=== PATIENT | male | born 2000 | race African-American/Black ===

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

== ENCOUNTER 2019-11-10 22:21 | Emergency (ER) | payer OTHER, SELFPAY ==
[2019-11-10 22:23] VITALS: BP 122/67; PULSE 93; RESP 15; TEMP 36.8; O2SAT 98; BMI 28.4
[2019-11-10] MEDS: SUMAtriptan 6 MG/0.5 ML Vial SC (23:07)
--- NOTE | 2019-11-10 23:58 | EKG12_ITS ---
Test Reason : HEADACHE Blood Pressure : / mmHG Vent. Rate : 068 BPM Atrial Rate : 068 BPM P-R Int : 182 ms QRS Dur : 094 ms QT Int : 398 ms P-R-T Axes : 012 084 045 degrees QTc Int : 423 ms Normal sinus rhythm with sinus arrhythmia Normal ECG Confirmed by ERINN ALEXANDER ([id number]), editorial specialist ISIDORO VAIL ([id number]) on 11/17/2019 8:07:01 AM Referred By: R[place] Confirmed By:ERINN ALEXANDER
--- NOTE | 2019-11-11 00:09 | ED.RN ---
NO OLD EKGS IN MUSE
--- NOTE | 2019-11-11 00:56 | ED.VIS.HA ---
History of Present Illness Chief Complaint: Headache Narrative: Patient presenting for evaluation secondary to headache. Patient reports that over about the last day and a half he has been dealing with a migraine headache. Patient reports that he does have a history of getting migraine headaches, but typically they are able to be alleviated by [id number] remedies. Patient states that since yesterday he had a gradual onset of a frontal throbbing headache. Yesterday was associated with some nausea but no vomiting, and was associated with some photophobia but that has since improved. Patient denies any recent fevers, head injury, neck stiffness, or skin rashes. Patient reports that he took some ibuprofen this evening and it did not seem to alleviate his pain. Patient denies any auras, visual changes, numbness or weakness. Review of systems otherwise negative. Past Medical History - Allergies and Home Meds Allergies/Adverse Reactions: Allergies No Known Allergies Allergy (Verified 11/10/19 22:23) Primary Care Physician: aJg Ross MD [STAFF PHYSICIAN] - As Needed Care Physician,No Primary [Primary Care Provider] - Prior records reviewed: Yes Past Medical History: - - Prior history of headaches Smoking Status: Current every day smoker Review of Systems All systems negative except as indicated General: Denies: Chills, Fever, Sweats Eyes: Denies: Visual changes - bilaterally, Diplopia ENT: Denies: Rhinorrhea, Sore throat Cardiovascular: Denies: Chest pain, Palpitations Respiratory: Denies: Dyspnea, Cough, Dyspnea on exertion Gastrointestinal: Reports: Nausea Genitourinary: Denies: Dysuria, Hematuria, Frequency Musculoskeletal: Denies: Back pain, Extremity Pain Skin: Denies: Rash, Wounds Neurological: Reports: Headache Physical Exam Vital Signs/Narrative: Vital Signs Temp Pulse Resp BP Pulse Ox 11/10/19 22:23 98.2 F 93 15 122/67 H 98 Inital Vital Signs reviewed: Yes General: Well nourished, Well developed Head: NC, AT. Negative for: Tenderness, Temporary Artery Tenderness Eyes: Perrl, EOMI, - - Funduscopy shows sharp optic discs with no evidence of retinal hemorrhages bilaterally ENT: Moist mucous membranes, No rhinorrhea Neck: Supple, No Lymphadenopathy, No JVD, Nontender, No Meningismus Cardiovascular: Regular rate, Regular rhythm, No murmurs Respiratory: No distress, CTA bilaterally, Chest nontender Abdomen: Soft, Nontender, Nondistended, Normal bowel sounds Back: Nontender, Normal Inspection Extremities: Nontender, No edema Skin: Normal color, No rash Neuro: Alert, Oriented x3, Cranial nerves II-XII grossly intact, Normal Strength, Normal Sensation, Normal DTR, Normal Gait Psychological: Normal affect Diagnostic/Tx/Re-eval - EKG Initial EKG Interpretation: - - Normal sinus rhythm with isoelectric ST segments normal T waves normal OK and QTc intervals no evidence of acute ischemia or arrhythmia - Medical Decision Making Patient presented for evaluation secondary to headache. He has no red flag signs or symptoms, no indication for neuroimaging. Patient was given a dose of Imitrex. He had improvement of his headache, but told me that he was having a mild amount of chest discomfort, so an EKG was obtained which was found to be normal. Patient at this point likely had a migraine headache which is now resolved. I will give the patient neurology with which to follow-up should this continue to be an issue. Patient was discharged in improved condition. ED Disposition - Plan for ED Patient: Disposition: Home or Assisted Living Diagnosis: Migraine headache Instructions: ED, Migraine (Classical) Referrals: Care Physician,No Primary [Primary Care Provider] - Jag Ross MD [STAFF PHYSICIAN] - As Needed
[2019-11-11 01:11] VITALS: BP 116/58; PULSE 82; RESP 17; O2SAT 96
== END 2019-11-11 01:11 | disposition home or self-care (01) ==
PROVIDERS: Emergency Provider Emergency Medicine
DX: G43.909 Migraine, unspecified, not intractable, without status migrainosus (principal); F17.200 Nicotine dependence, unspecified, uncomplicated
CPT/HCPCS: 93005; 99282; J3030

== ENCOUNTER 2021-02-08 15:58 | Inpatient (IN) | payer OTHER, SELFPAY ==
[2021-02-08] VITALS (7 sets, daily range): BP systolic 107–115; BP diastolic 66–77; PULSE 92–112; RESP 18–25; TEMP 36.3–36.8; O2SAT 93–97; BMI 31.1
--- NOTE | 2021-02-08 16:47 | RAD_ITS ---
STUDY: X-RAY CHEST REASON FOR EXAM: Male, 21 years old. SOB TECHNIQUE: Single AP portable view of the chest. COMPARISON: None. FINDINGS: No pleural effusion. Moderate opacity in the left lower lobe. Normal size heart. Normal mediastinum and itzel. Normal visualized pulmonary arteries. Normal visualized aortic arch and descending thoracic aorta. Normal visualized thoracic spine. Normal visualized ribs, clavicles, and shoulders. There is no demonstrated abnormality of the visualized soft tissue structures of the upper abdomen. RAD/Chest 1 View IMPRESSION: Left lower lobe opacity suspicious for pneumonia. Electronically Signed: Jaed Gonsalez MD at 17:35 EDT Tel , Service support ,
--- NOTE | 2021-02-08 16:53 | EDS_ITS ---
HPI History of Present Illness Chief Complaint: Shortness of Breath Detail of Chief Complaint: Shortness of breath and COVID-19 infection Informant: patient Associated Symptoms cough and fever Narrative Narrative: Patient presents to the emergency department from urgent care. Patient was there for chest pain and increasing shortness of breath. Patient was diagnosed with COVID-19 about 8 days ago. Patient had symptoms 3 days prior to that. Patient about 5 days ago started having some chest discomfort in the left side of his chest especially with coughing. Patient feeling short of breath with activity. He complains of generalized weakness. He has had intermittent low-grade fevers. Patient complains of generalized weakness. Patient apparently with ambulation at urgent care had O2 sat dropped to 87%. PFSH PFS Medical History no medical history Home Medications NK 11/10/19 [History Last Taken Unknown] Allergy/AdvReac Type Severity Reaction Status Date / Time No Known Allergies Allergy Verified 02/08/21 16:13 Surgical History no surgical history Social History Smoking Status: Never smoker ROS [facility] ED Constitutional Constitutional ED: Reports systems reviewed and no addt'l complaints, except as documented; Denies body ache(s), change in weight or chills Eyes Eyes: Denies acute decrease in peripheral vision, change in vision, double vision or loss of vision ENT ENT ED: Reports none; Denies ear pain, lip swelling, loss taste/smell, neck pain, otalgia or sore throat Cardiovascular Cardiovascular: Reports none; Denies abdominal pain, chest pain with activity, leg edema, lightheadedness, palpitations, rapid heart rate or syncope Respiratory/Chest Respiratory/Chest: Reports none, cough and dyspnea; Denies change in mental status, dry cough, hemoptysis, shortness of breath at rest or shortness of breath with exertion Gastrointestinal Gastrointestinal: Reports none; Denies abdominal pain, change in stool abigail cter, diarrhea, hematemesis, hematochezia, melena, rectal bleeding or vomiting Genitourinary Genitourinary ED: Reports none; Denies abdominal discomfort, anuria, dysuria, genital pain or polyuria Musculoskeletal Musculoskeletal: Reports none and myalgias; Denies arthralgias, back pain, difficulty walking, extremity pain or muscle weakness Integumentary Reports none; Denies abscess or rash Neurologic Neurologic: Reports none and weakness; Denies abnormal gait, confusion, focal weakness, frequent falls, headache(s), loss of vision, numbness, paresthesias, radicular pain or vertigo Psychiatric Psychiatric: Reports systems reviewed and no addt'l complaints, except as documented and none; Denies behavioral changes, confusion, difficulty concentrating, hallucinations, suicidal ideation, tactile hallucinations or visual hallucinations Endocrine Endocrinology: Denies none, cold intolerance, excessive sweating, fatigue or heat intolerance Hematologic/Lymphatic Hematologic/Lymphatic: Reports none; Denies anemia, easy bleeding or easy bruising Allergic/Immunologic Allergic/Immunologic ED: Denies as per HPI, none, lip swelling, mouth swelling, throat swelling, tongue swelling or hives EXAM Physical Exam Const Vital Signs: 02/08/21 16:10 02/08/21 17:27 02/08/21 17:36 Temperature 97.8 F Temperature Source Temporal Pulse Rate 112 H Respiratory Rate 18 Respiratory Effort Short of Breath Respiratory Pattern Tachypnea Blood Pressure 107/77 Blood Pressure Mean 87 Pulse Ox 97 93 Oxygen Delivery Method Nasal Cannula Room Air Room Air Oxygen Flow Rate (L/min) 2 Positive well nourished and well developed General Appearance ED: well developed and NAD HEENT Reports TM's clear and moist mucous membranes normocephalic and atraumatic; Negative for trauma or tenderness Tympanic Membrane ED: Yes TM's clear Eyes PERRL and EOMs intact bilaterally General Eye ED: Negative for pale conjunctiva or scleral icterus Neck no lymphadenopathy, supple and no JVD General: Negative for tenderness Chest Wall inspection of chest normal and palpation of chest normal Chest: Negative for tenderness Resp normal respiratory effort and clear to auscultation bilaterally Effort and Inspection: Negative for respiratory distress or pain with movement Auscultation: Negative for rhonchi, wheezes or diminished lung sounds Cardio regular rate, regular rhythm, S1 normal heart sound, S2 normal heart sound and no murmurs Peripheral Pulses: pulses 2+ throughout GI normal to inspection, nondistended, normoactive bowel sounds, soft to palpation, non-tender, non-distended and no masses Back/Spine no CVA tenderness and no thoracic nor lumbar tenderness Extremity normal to inspection General Extremety ED: Negative for edema General Extremity: Negative for edema Neuro oriented x3, CN's II-XII intact bilaterally, no sensory deficits noted and gait normal Sensorium / Orientation: awake, alert, oriented to person, oriented to place and oriented to time Motor Exam: strength 5/5 throughout and strength abnormal Psych mental status grossly normal Skin no rashes or lesions noted and no wounds MDM MDM MDM Narrative Medical decision making narrative: Patient placed on 2 L nasal cannula O2. Patient had an elevated D-dimer therefore CTA was obtained which showed extensive bilateral PEs with a left lower lobe consolidation. Patient had blood cultures ordered and started Levaquin. Patient was started on Lovenox subcu. Case discussed with hospitalist will evaluate patient for admission Lab Data Attestation: I reviewed the patient's lab results. Labs: Laboratory Results - last 24 hr 02/08/21 02/08/21 02/08/21 16:45 16:45 16:45 WBC 11.3 H RBC 5.40 Hgb 16.2 Hct 48.9 MCV 90.6 MCH 30.0 MCHC 33.1 RDW Std Deviation 39.6 RDW Coeff of John 11.9 Plt Count 455 H MPV 8.7 Immature Gran % (Auto) 1.500 H Neut % (Auto) 75.9 H Lymph % (Auto) 10.7 L [place] % (Auto) 11.3 H Eos % (Auto) 0.2 Baso % (Auto) 0.4 Absolute Neuts (auto) 8.6 H Absolute Lymphs (auto) 1.21 Nucleated RBC % 0 D-Dimer Quant (PE/DVT) 13.47 H* Sodium 137 Potassium 3.6 Chloride 102 Carbon Dioxide 30.0 Anion Gap 5 BUN 8 Creatinine 1.05 Estim Creat Clear Calc 121.12 Est GFR (MDRD) Af Amer 114 Est GFR (MDRD) Non-Af 94 BUN/Creatinine Ratio 7.6 L Glucose 111 H Calcium 9.1 Radiography Chest X-Ray - ED: 1 View Diagnostic Testing: Radiology Impression Chest X-Ray 02/08/21 16:47 IMPRESSION: Left lower lobe opacity suspicious for pneumonia. Electronically Signed: Jade Gonsalez MD at 17:35 EDT Tel , Service support , Chest CTA 02/08/21 17:42 IMPRESSION: 1. Extensive bilateral pulmonary emboli. 2. Left lower lobe consolidation. Pneumonia is favored over pulmonary infarct. 3. Right lung opacities suspicious for pneumonia, including possible Covid-19 pneumonia. Electronically Signed: Jade Gonsalez MD at 18:25 EDT Tel , Service support , ADDENDUM: 02/08/21 1840 IMPRESSION: 1. Extensive bilateral pulmonary emboli. 2. Left lower lobe consolidation. Pneumonia is favored over pulmonary infarct. 3. Right lung opacities suspicious for pneumonia, including possible Covid-19 pneumonia. N.B. : The above Results were Read Back by Jade Gonsalez MD to Dr Jovany MD, and understanding confirmed on 02/08/2021 18:32:04 (ET). Electronically Signed: Jade Gonsalez MD at 18:25 EDT Tel , Service support , 1 view chest x-ray obtained interpreted by myself as left lower lobe infiltrate. Radiology in agreement. Discharge Plan Triage Chief Complaint: Shortness of Breath ED Provider: Noah Manzo Dx/Rx/DC Orders Clinical Impression: COVID-19, Pneumonia, Pulmonary emboli, Hypoxemia Prescriptions: No Action NK RF: 0 Primary Care Provider: Care Physician,No Primary Referrals: Care Physician,No Primary [Primary Care Provider] - Disposition Disposition: Acute Care [facility]
[2021-02-08 17:08] LABS: Absolute Lymphocyte Count 1.21 X10^3/uL (0.83-4.51); Absolute Neutrophil Count 8.6 X10^3/uL (2.0-7.7); Basophil# 0.04 X10^3/uL; Basophil% 0.4 % (0-1); Eosinophil# 0.02 X10^3/uL; Eosinophils% 0.2 % (0-5); Hematocrit 48.9 % (40-54); Hemoglobin 16.2 g/dL (13.0-16.5); Lymphocyte # 1.21 X10^3/ul (0.83-4.51); Lymphocyte % 10.7 % (19-41); Mean Corp Hgb Conc 33.1 g/dL (32-36); Mean Corpuscular Volume 90.6 fL (80-94); Mean Platelet Vol. 8.7 fl (6.2-12.0); Monocyte# 1.27 X10^3/uL; Monocyte% 11.3 % (0-10); NRBC Flagged by Analyzer 0 % (0-5); Neutrophil # 8.55 X10^3/uL (2.7-7.7); Neutrophil % 75.9 % (47-70); Platelet Count 455 K/mm3 (150-450); RBC Distribution Width CV 11.9 % (11.6-14.6); RBC Distribution Width SD 39.6 fl (35.1-43.9); White Blood Count 11.3 K/mm3 (4.4-11.0)
[2021-02-08 17:26] LABS: D-Dimer Quantitative (DVT/PE) 13.47 FEU/ug/m (0.27-0.49)
[2021-02-08 17:29] LABS: Anion Gap 5 (5-15); BUN 8 mg/dL (7-18); BUN/Creat Ratio 7.6 RATIO (10-20); Calcium,Total 9.1 mg/dL (8.5-10.1); Chloride 102 mmol/L (98-107); Creatinine, Serum 1.05 mg/dL (0.70-1.30); EST Glomerular Filtration Rate 94 mL/min (>60); Est Glom Filt Rate - Afr Amer 114 mL/min (>60); Estimated Creatinine Clearance 121.12 ml/min; Glucose 111 mg/dL (74-106); Potassium 3.6 mmol/L (3.5-5.1); Sodium Level 137 mmol/L (136-145)
--- NOTE | 2021-02-08 17:42 | CT_ITS ---
We are attempting to reach an attending provider to discuss findings. An addendum with communication details will be sent when the communication is complete. STUDY: CTA CHEST REASON FOR EXAM: Male, 21 years old. chest pain, elevated d-dimer RADIATION DOSAGE (If Supplied By Facility): CTDIvol = ( 11.06 ) mGy, DLP = ( 410.74 ) mGycm TECHNIQUE: The examination was performed with the intravenous administration of IV 100mL Isovue-370. Post-processing of the angiographic images was performed, with multiplanar reformation and 3D reconstruction. Individualized dose optimization techniques were used for this CT. COMPARISON: None. FINDINGS: Heart size and pericardium are unremarkable. The aorta is normal in caliber. No aneurysm or dissection. There is no mediastinal mass or adenopathy. There is no hilar or axillary adenopathy. Extensive pulmonary embolus with emboli demonstrated and all lobar arteries. Segmental and subsegmental emboli are also present. Trace right pleural effusion. If lower lobe consolidation consistent with pneumonia. Pulmonary infarct is not excluded. Mild hazy opacity in the right lung, suspicious for pneumonic infiltrate. Visualized abdomen is unremarkable. There is no osseous abnormality. CT/CTA Chest W/WO Contrast IMPRESSION: 1. Extensive bilateral pulmonary emboli. 2. Left lower lobe consolidation. Pneumonia is favored over pulmonary infarct. 3. Right lung opacities suspicious for pneumonia, including possible Covid-19 pneumonia. Electronically Signed: Jade Gonsalez MD at 18:25 EDT Tel , Service support ,
[2021-02-08] MEDS: levoFLOXacin IV 750 MG/150 ML BAG 100 MG IV (18:57)
[2021-02-08] MEDS: Enoxaparin 100 MG/ML Syringe 105 MG SC (18:57)
--- NOTE | 2021-02-08 18:57 | NURSING ---
118 GEOFFREY COVID, PNEUMONIA, HYPOXIA, PE
--- NOTE | 2021-02-08 18:59 | PCM.HP.STD ---
HPI - General General Date of Admission: 02/08/21 HPI Narrative JORGE LUIS VILLANUEVA, is a 21 M who presents [facility] Medical History no medical history Home Medications NK 11/10/19 [History Last Taken Unknown] Allergy/AdvReac Type Severity Reaction Status Date / Time No Known Allergies Allergy Verified 02/08/21 16:13 Surgical History no surgical history Social History Smoking Status: Never smoker Vital Signs Vital Signs Vital Signs: 02/08/21 16:10 02/08/21 17:27 02/08/21 17:36 Temperature 97.8 F Temperature Source Temporal Pulse Rate 112 H Respiratory Rate 18 Respiratory Effort Short of Breath Respiratory Pattern Tachypnea Blood Pressure 107/77 Blood Pressure Mean 87 Pulse Ox 97 93 Oxygen Delivery Method Nasal Cannula Room Air Room Air Oxygen Flow Rate (L/min) 2 Weight Weight: 230 lb Body Mass Index (BMI) 31.1 Results Lab / Micro Data Result Diagrams: 02/08/21 16:45 02/08/21 16:45 Labs: Laboratory Results - last 24 hr 02/08/21 16:45: WBC 11.3 H, RBC 5.40, Hgb 16.2, Hct 48.9, MCV 90.6, MCH 30.0, MCHC 33.1, RDW Std Deviation 39.6, RDW Coeff of John 11.9, Plt Count 455 H, MPV 8.7, Immature Gran % (Auto) 1.500 H, Neut % (Auto) 75.9 H, Lymph % (Auto) 10.7 L, [place] % (Auto) 11.3 H, Eos % (Auto) 0.2, Baso % (Auto) 0.4, Absolute Neuts (auto) 8.6 H, Absolute Lymphs (auto) 1.21, Nucleated RBC % 0 02/08/21 16:45: Sodium 137, Potassium 3.6, Chloride 102, Carbon Dioxide 30.0, Anion Gap 5, BUN 8, Creatinine 1.05, Estim Creat Clear Calc 121.12, Est GFR (MDRD) Af Amer 114, Est GFR (MDRD) Non-Af 94, BUN/Creatinine Ratio 7.6 L, Glucose 111 H, Calcium 9.1 02/08/21 16:45: D-Dimer Quant (PE/DVT) 13.47 H* Radiology Impression Chest X-Ray 02/08/21 16:47 IMPRESSION: Left lower lobe opacity suspicious for pneumonia. Electronically Signed: Jade Gonsalez MD at 17:35 EDT Tel , Service support , Chest CTA 02/08/21 17:42 IMPRESSION: 1. Extensive bilateral pulmonary emboli. 2. Left lower lobe consolidation. Pneumonia is favored over pulmonary infarct. 3. Right lung opacities suspicious for pneumonia, including possible Covid-19 pneumonia. Electronically Signed: Jade Gonsalez MD at 18:25 EDT Tel , Service support , ADDENDUM: 02/08/21 1840 IMPRESSION: 1. Extensive bilateral pulmonary emboli. 2. Left lower lobe consolidation. Pneumonia is favored over pulmonary infarct. 3. Right lung opacities suspicious for pneumonia, including possible Covid-19 pneumonia. N.B. : The above Results were Read Back by Jade Gonsalez MD to Dr Jovany MD, and understanding confirmed on 02/08/2021 18:32:04 (ET). Electronically Signed: Jade Gonsalez MD at 18:25 EDT Tel , Service support ,
--- NOTE | 2021-02-08 19:18 | PCM.HP.STD ---
HPI - General General Date of Admission: 02/08/21 Date of Service: 02/08/21 Chief Complaint: Hypoxia, COVID positive, pleuritic discomfort. HPI Narrative The patient is a 21 y/o M w/ no marked PMHx who presents to the [facility] ED on 02/08/21 with history of onset of Covid symptoms over the last 10 days with mild headache, decreased sense of taste and smell, mild nausea, dry heaving, mild abdominal cramping and loose stools with progressively worsening cough and dyspnea as well as body aches with no specific fever, chills associated however continued to worsen prompting evaluation initially at [facility] urgent care with positive Covid status however given continued difficulty with even ambulation secondary to worsening dyspnea patient prompted to be evaluated in the ED. Patient does report some pleuritic discomfort in addition. Patient did not receive the Covid vaccination. Work-up in the ED included T 97 8, heart rate initially 112, BP 107/77, respiratory rate 18, 93% on room air with improvement to 96 on 2 L nasal cannula, CBC with WC 11.3, hemoglobin 16.2, platelet 455 with left shift, D-dimer 13.47, BMP with glucose 111 otherwise not marked appearing, chest x-ray with left lower lobe opacity suspicious for pneumonia, follow-up CTPA with extensive bilateral pulmonary emboli, left lower lobe consolidation with pneumonia favored over pulmonary infarct, right lung opacity also suspicious for pneumonia suspicious for COVID-19 pneumonia. In the ED patient administered therapeutic lovenox and Levaquin. [facility] Medical History (Updated 02/08/21 @ 19:[address] Nevaeh Mak MD) No significant past medical history Medical History no medical history Home Medications NK 11/10/19 [History Last Taken Unknown] Allergy/AdvReac Type Severity Reaction Status Date / Time No Known Allergies Allergy Verified 02/08/21 16:13 Family History (Updated 02/08/21 @ 19:[address] Nevaeh Mak MD) Father Diabetes Mother Hypertension Surgical History (Updated 02/08/21 @ 19:[address] Nevaeh Mak MD) No significant past surgical history Surgical History no surgical history Social History (Updated 02/08/21 @ 19:[address] Nevaeh Mak MD) household members: none Smoking Status: Never smoker alcohol intake: current alcohol intake frequency: a few times a month substance use type: does not use ROS ROS Narrative Admission Review of Systems: CONSTITUTIONAL: No weight loss, fever, chills, + weakness or fatigue. HEENT: Eyes: No visual loss, blurred vision, double vision or yellow sclerae. Ears, Nose, Throat: No hearing loss, sneezing, congestion, runny nose or sore throat. SKIN: No rash or itching, lesions, wounds. CARDIOVASCULAR: No chest pain, chest pressure or chest discomfort, palpitations, edema, orthopnea, syncopal events. RESPIRATORY: + shortness of breath, cough, No marked sputum, wheezing, hemoptysis. GASTROINTESTINAL: + anorexia, nausea, vomiting, diarrhea, abdominal pain, No melena, BRBPR. GENITOURINARY: No dysuria, frequency, urgency or retention. NEUROLOGICAL: No headache, dizziness, syncope, paralysis, ataxia, numbness or tingling in the extremities, focal weakness, change in bowel or bladder control, seizure. MUSCULOSKELETAL: + muscle, back pain, joint pain or stiffness. HEMATOLOGIC: No anemia, bleeding or bruising. LYMPHATICS: No enlarged nodes. No history of splenectomy. PSYCHIATRIC: No history of depression or anxiety. ENDOCRINOLOGIC: No reports of sweating, cold or heat intolerance. No polyuria or polydipsia. ALLERGIES: No history of asthma, hives, eczema or rhinitis. Vital Signs Vital Signs Vital Signs: 02/08/21 16:10 02/08/21 17:27 02/08/21 17:36 Temperature 97.8 F Temperature Source Temporal Pulse Rate 112 H Respiratory Rate 18 Respiratory Effort Short of Breath Respiratory Pattern Tachypnea Blood Pressure 107/77 Blood Pressure Mean 87 Pulse Ox 97 93 Oxygen Delivery Method Nasal Cannula Room Air Room Air Oxygen Flow Rate (L/min) 2 02/08/21 19:05 Temperature 98.3 F Temperature Source Oral Pulse Rate 92 Respiratory Rate 25 H Respiratory Effort Respiratory Pattern Blood Pressure 115/73 Blood Pressure Mean 87 Pulse Ox 96 Oxygen Delivery Method Nasal Cannula Oxygen Flow Rate (L/min) 2 Weight Weight: 230 lb Body Mass Index (BMI) 31.1 Physical Exam Narrative Physical Examination: General: Awake, alert, oriented x 3 and cooperative, seated upright in the ED bed in no apparent distress, fatigued appearance. Skin: Normal color, normal turgor, no icterus, no cyanosis. HEENT: AT/NC, EOMI, PERRLA, mildly dry MM, no carotid bruits or JVD noted. Lungs: Diminished, greater bases, mildly decreased effort likely secondary to pleuritic discomfort elicited, mild increased respiratory rate, no rales, ronchi or wheezing. Heart: Tachycardic with regular rhythm; no gallop, rub audible. Abdomen: Soft, NTTP, no obvious distention, mildly hyperactive BS, no HSM. Extremities: No cyanosis, clubbing, or edema. Neurological: Patient awake, alert, oriented as noted, cognitive function intact; pupils equally reactive to light and accommodation, cranial nerves II-XII grossly normal, moving all 4 extremities, no focal deficits, strength moderately globally 3 secondary to acute presentation complaints. Psychiatric: Affect appears fatigued, no acute evidence of depressive or anxiety feelings. Results Lab / Micro Data Result Diagrams: 02/08/21 16:45 02/08/21 16:45 Labs: Laboratory Results - last 24 hr 02/08/21 16:45: WBC 11.3 H, RBC 5.40, Hgb 16.2, Hct 48.9, MCV 90.6, MCH 30.0, MCHC 33.1, RDW Std Deviation 39.6, RDW Coeff of John 11.9, Plt Count 455 H, MPV 8.7, Immature Gran % (Auto) 1.500 H, Neut % (Auto) 75.9 H, Lymph % (Auto) 10.7 L, [place] % (Auto) 11.3 H, Eos % (Auto) 0.2, Baso % (Auto) 0.4, Absolute Neuts (auto) 8.6 H, Absolute Lymphs (auto) 1.21, Nucleated RBC % 0 02/08/21 16:45: Sodium 137, Potassium 3.6, Chloride 102, Carbon Dioxide 30.0, Anion Gap 5, BUN 8, Creatinine 1.05, Estim Creat Clear Calc 121.12, Est GFR (MDRD) Af Amer 114, Est GFR (MDRD) Non-Af 94, BUN/Creatinine Ratio 7.6 L, Glucose 111 H, Calcium 9.1 02/08/21 16:45: D-Dimer Quant (PE/DVT) 13.47 H* Radiology Impression Chest X-Ray 02/08/21 16:47 IMPRESSION: Left lower lobe opacity suspicious for pneumonia. Electronically Signed: Jade Gonsalez MD at 17:35 EDT Tel , Service support , Chest CTA 02/08/21 17:42 IMPRESSION: 1. Extensive bilateral pulmonary emboli. 2. Left lower lobe consolidation. Pneumonia is favored over pulmonary infarct. 3. Right lung opacities suspicious for pneumonia, including possible Covid-19 pneumonia. Electronically Signed: Jade Gonsalez MD at 18:25 EDT Tel , Service support , ADDENDUM: 02/08/21 1840 IMPRESSION: 1. Extensive bilateral pulmonary emboli. 2. Left lower lobe consolidation. Pneumonia is favored over pulmonary infarct. 3. Right lung opacities suspicious for pneumonia, including possible Covid-19 pneumonia. N.B. : The above Results were Read Back by Jade Gonsalez MD to Dr Jovany MD, and understanding confirmed on 02/08/2021 18:32:04 (ET). Electronically Signed: Jade Gonsalez MD at 18:25 EDT Tel , Service support , Assessment & Plan Assessment/Plan (1) COVID-19: (2) Hypoxemia: (3) Pulmonary emboli: QUALIFIERS: Pulmonary embolism type: unspecified Chronicity: acute Acute cor pulmonale presence: unspecified Qualified Code(s): I26.99 - Other pulmonary embolism without acute cor pulmonale PLAN: The patient is a 21 y/o M w/ no marked PMHx who presents to the [facility] ED on 02/08/21 with history of onset of Covid symptoms over the last 10 days with mild headache, decreased sense of taste and smell, mild nausea, dry heaving, mild abdominal cramping and loose stools with progressively worsening cough and dyspnea as well as body aches with no specific fever, chills associated however continued to worsen prompting evaluation. 1. Acute Hypoxia secondary to Acute Bilateral Pneumonia secondary to Acute Viral Syndrome, COVID-19, Questionable Superimposed bacterial PNA and Acute Extensive BL Pulmonary Emboli: Will admit to the PCU, maintain on COVID precautions, will maintain on oxygen with wean as tolerated to room air, PRN albuterol, HOB, IS parameters w/ pending sputum cultures, respiratory viral panel and urine antigens, will obtain procalcitonin, CRP, CPK, Ferritin, LDH, trop, BNP, hepatic profile, will continue supportive care including q 2 hour turning including prone given no prone bed availability and judicious hydration, closely monitor for worsening status for ARDS and multiorgan failure, will initiate and continue IV decadron x 10 doses, will also initiate IV remdesivir but defer to discretion of Infectious disease, will continue therapeutic lovenox with pending CM consultation for oral options/NOAC affordability. Patient administered Levaquin in the ED given appearance on CXR and CTPA, will continue pending additional work-up as noted for possible superimposed bacterial PNA, d/c if work-up more consistent with primarily COVID viral PNA. Discussed vaccination following clinical improvement as well as completion of quarantine. 2. DVT prophylaxis: SCDs, continue therapeutic Lovenox. Charges/Coding Visit Charges Inpatient E&M: 76183 Init Hosp L2
[2021-02-08 20:00] LABS: BNP,B-Type NATRIURETIC PEPTIDE 6.8 pg/mL (0-100)
[2021-02-08 20:01] LABS: AST(SGOT) 27 U/L (15-37); Alanine Aminotransfer ALT/SGPT 32 U/L (16-61); Albumin, Serum 3.3 g/dL (3.2-5.0); Alkaline Phosphatase 61 U/L (45-117); Bilirubin, Direct 0.38 mg/dL (0.00-0.30); Ferritin 659 ng/mL (26-388); Globulin 5.6 g/dL (2.2-4.2); LDH 359 U/L (87-241); Protein, Total 8.9 g/dL (6.4-8.2)
[2021-02-08 20:04] LABS: Procalcitonin 0.06 ng/mL (0.00-0.09)
--- NOTE | 2021-02-08 20:07 | PCS.PANDOC ---
PANDEMIC DOCUMENTATION INITIATED: Date: 01/02/2021 Time: 190
[2021-02-08] MEDS: Famotidine 20 MG Tablet PO (21:07)
[2021-02-08 22:39] LABS: Troponin-I HS 4 pg/mL (3.0-78.0)
[2021-02-09] VITALS (13 sets, daily range): BP systolic 111–147; BP diastolic 64–84; PULSE 85–101; RESP 16–18; TEMP 36.3–37.4; O2SAT 91–98
[2021-02-09 00:42] LABS: Troponin-I HS 4 pg/mL (3.0-78.0)
[2021-02-09 05:20] LABS: Absolute Lymphocyte Count 1.96 X10^3/uL (0.83-4.51); Absolute Neutrophil Count 6.3 X10^3/uL (2.0-7.7); Basophil# 0.03 X10^3/uL; Basophil% 0.3 % (0-1); Eosinophil# 0.05 X10^3/uL; Eosinophils% 0.5 % (0-5); Hematocrit 43.6 % (40-54); Hemoglobin 14.6 g/dL (13.0-16.5); Lymphocyte # 1.96 X10^3/ul (0.83-4.51); Lymphocyte % 20.2 % (19-41); Mean Corp Hgb Conc 33.5 g/dL (32-36); Mean Corpuscular Volume 89.5 fL (80-94); Mean Platelet Vol. 8.7 fl (6.2-12.0); Monocyte# 1.29 X10^3/uL; Monocyte% 13.3 % (0-10); NRBC Flagged by Analyzer 0 % (0-5); Neutrophil # 6.25 X10^3/uL (2.7-7.7); Neutrophil % 64.3 % (47-70); Platelet Count 465 K/mm3 (150-450); RBC Distribution Width CV 11.9 % (11.6-14.6); RBC Distribution Width SD 38.8 fl (35.1-43.9); Red Blood Count 4.87 M/mm3 (4.6-6.2); White Blood Count 9.7 K/mm3 (4.4-11.0)
[2021-02-09 06:18] LABS: ALB/GLOB Ratio 0.5 RATIO (0.9-2.4); AST(SGOT) 22 U/L (15-37); Alanine Aminotransfer ALT/SGPT 28 U/L (16-61); Albumin, Serum 2.5 g/dL (3.2-5.0); Alkaline Phosphatase 57 U/L (45-117); Anion Gap 7 (5-15); BUN 7 mg/dL (7-18); BUN/Creat Ratio 9.1 RATIO (10-20); Calcium,Total 8.3 mg/dL (8.5-10.1); Chloride 104 mmol/L (98-107); Creatinine, Serum 0.77 mg/dL (0.70-1.30); EST Glomerular Filtration Rate 135 mL/min (>60); Est Glom Filt Rate - Afr Amer 163 mL/min (>60); Estimated Creatinine Clearance 165.17 ml/min; Globulin 4.9 g/dL (2.2-4.2); Glucose 115 mg/dL (74-106); Potassium 3.4 mmol/L (3.5-5.1); Protein, Total 7.4 g/dL (6.4-8.2); Sodium Level 136 mmol/L (136-145); Troponin-I HS 4 pg/mL (3.0-78.0)
--- NOTE | 2021-02-09 08:13 | PCM.PN.HOSP ---
Subjective Subjective Patient is a 21-year-old unvaccinated male diagnosed with COVID-19 8 days prior to his admission who was sent from his primary care physician's office with hypoxia. Patient was apparently found to be saturating 87% on room air with exertion. Objective Data Objective Data Vital Signs: Vital Signs Temp Pulse Resp BP Pulse Ox 98.5 F 93 18 113/67 98 02/09/21 05:31 02/09/21 07:10 02/09/21 05:31 02/09/21 05:31 02/09/21 05:31 Oxygen Flow Rate (L/min) 2 Oxygen Delivery Method Nasal Cannula Weight: 100.7 kg Body Mass Index (BMI) 30.0 Intake & Output: Intake and Output for Last 24 Hours 02/07/21 02/08/21 02/09/21 23:59 23:59 23:59 Intake Total 400 / 400 Balance 400 / 400 Lab / Micro Data Result Diagrams: 02/09/21 04:48 02/09/21 04:48 Labs: Laboratory Results - last 24 hr 02/08/21 16:45: WBC 11.3 H, RBC 5.40, Hgb 16.2, Hct 48.9, MCV 90.6, MCH 30.0, MCHC 33.1, RDW Std Deviation 39.6, RDW Coeff of John 11.9, Plt Count 455 H, MPV 8.7, Immature Gran % (Auto) 1.500 H, Neut % (Auto) 75.9 H, Lymph % (Auto) 10.7 L, [place] % (Auto) 11.3 H, Eos % (Auto) 0.2, Baso % (Auto) 0.4, Absolute Neuts (auto) 8.6 H, Absolute Lymphs (auto) 1.21, Nucleated RBC % 0 02/08/21 16:45: Sodium 137, Potassium 3.6, Chloride 102, Carbon Dioxide 30.0, Anion Gap 5, BUN 8, Creatinine 1.05, Estim Creat Clear Calc 121.12, Est GFR (MDRD) Af Amer 114, Est GFR (MDRD) Non-Af 94, BUN/Creatinine Ratio 7.6 L, Glucose 111 H, Calcium 9.1 02/08/21 16:45: D-Dimer Quant (PE/DVT) 13.47 H* 02/08/21 16:45: Ferritin 659 H, Total Bilirubin 1.10 H, Direct Bilirubin 0.38 H, AST 27, ALT 32, Alkaline Phosphatase 61, Lactate Dehydrogenase 359 H, C-React Prot Ext Range 114.00 H, Total Protein 8.9 H, Albumin 3.3, Globulin 5.6 H 02/08/21 16:45: B-Natriuretic Peptide 6.8 02/08/21 16:45: Procalcitonin 0.06 02/08/21 22:12: Troponin I High Sens 4 02/09/21 00:00: Troponin I High Sens 4 02/09/21 04:48: WBC 9.7, RBC 4.87, Hgb 14.6, Hct 43.6, MCV 89.5, MCH 30.0, MCHC 33.5, RDW Std Deviation 38.8, RDW Coeff of John 11.9, Plt Count 465 H, MPV 8.7, Immature Gran % (Auto) 1.400 H, Neut % (Auto) 64.3, Lymph % (Auto) 20.2, [place] % (Auto) 13.3 H, Eos % (Auto) 0.5, Baso % (Auto) 0.3, Absolute Neuts (auto) 6.3, Absolute Lymphs (auto) 1.96, Nucleated RBC % 0 02/09/21 04:48: Sodium 136, Potassium 3.4 L, Chloride 104, Carbon Dioxide 25.0, Anion Gap 7, BUN 7, Creatinine 0.77, Estim Creat Clear Calc 165.17, Est GFR (MDRD) Af Amer 163, Est GFR (MDRD) Non-Af 135, BUN/Creatinine Ratio 9.1 L, Glucose 115 H, Calcium 8.3 L, Total Bilirubin 0.60, AST 22, ALT 28, Alkaline Phosphatase 57, Troponin I High Sens 4, Total Protein 7.4, Albumin 2.5 L, Globulin 4.9 H, Albumin/Globulin Ratio 0.5 L Micro: Microbiology 02/08/21 20:11 Mucosa - Nasopharyngeal Respiratory Panel (PCR) - Final 02/08/21 21:17 Urine, Clean Catch Legionella Antigen - Final 02/08/21 21:17 Urine, Clean Catch Streptococcus pneumoniae Antigen (M - Final Radiography Diagnostic Testing: Radiology Impression Chest X-Ray 02/08/21 16:47 IMPRESSION: Left lower lobe opacity suspicious for pneumonia. Electronically Signed: Jade Gonsalez MD at 17:35 EDT Tel , Service support , Chest CTA 02/08/21 17:42 IMPRESSION: 1. Extensive bilateral pulmonary emboli. 2. Left lower lobe consolidation. Pneumonia is favored over pulmonary infarct. 3. Right lung opacities suspicious for pneumonia, including possible Covid-19 pneumonia. Electronically Signed: Jade Gonsalez MD at 18:25 EDT Tel , Service support , ADDENDUM: 02/08/21 1840 IMPRESSION: 1. Extensive bilateral pulmonary emboli. 2. Left lower lobe consolidation. Pneumonia is favored over pulmonary infarct. 3. Right lung opacities suspicious for pneumonia, including possible Covid-19 pneumonia. N.B. : The above Results were Read Back by Jade Gonsalez MD to Dr Jovany MD, and understanding confirmed on 02/08/2021 18:32:04 (ET). Electronically Signed: Jade Gonsalez MD at 18:25 EDT Tel , Service support , Physical Exam Narrative GENERAL: cooperative HEENT: Atraumatic; EYES; Anicteric, Normal Conjunctiva NECK; supple, normal thyroid, RESPIRATORY: Diminished to auscultation CARDIOVASCULAR: Regular S1 S2, GI: soft, normoactive bowel sounds, : No Renal angle tenderness; EXTREMITIES: No edema, no clubbing, MUSCULOSKELETAL: no muscle waisting NEURO: Awake; no lateralizing signs. SKIN: No Rash PSYCH; Flat affect Assessment & Plan Assessment/Plan (1) COVID-19: (2) Hypoxemia: (3) Pulmonary emboli: QUALIFIERS: Acute cor pulmonale presence: unspecified Chronicity: acute Pulmonary embolism type: unspecified Qualified Code(s): I26.99 - Other pulmonary embolism without acute cor pulmonale PLAN: Patient is a 21-year-old unvaccinated male diagnosed with COVID-19 8 days prior to his admission who was sent from his primary care physician's office with hypoxia. Patient was apparently found to be saturating 87% on room air with exertion. 1. Acute hypoxic respiratory failure ?Secondary to SARS-CoV-2 pneumonia as well as pulmonary embolism 2. SARS-CoV-2 pneumonia ?Admitted to a monitored bed managed with Decadron remdesivir as well as supplemental oxygen 3. Covid induced hypercoagulable state with resultant massive pulmonary embolism ?CT of the chest obtained demonstrated Extensive pulmonary embolus with emboli demonstrated and all lobar arteries. Segmental and subsegmental emboli are also present.. Patient started on therapeutic Lovenox 4. DVT prophylaxis ?Patient presented with pulmonary embolism no additional necessary in view of above 5. Obesity with BMI of 30.1 ?Weight loss advised Charges/Coding Visit Charges Inpatient E&M: 57686 Subs Hosp L3
[2021-02-09] MEDS: dexAMETHasone 4 MG/ML Vial 6 MG IV (09:09)
[2021-02-09] MEDS: levoFLOXacin IV 750 MG/150 ML BAG 100 MG IV (09:10)
[2021-02-09] MEDS: Famotidine 20 MG Tablet PO ×2 (09:10→22:11)
[2021-02-09] MEDS: Enoxaparin 120 MG/0.8 ML Syringe 105 MG SC ×2 (09:10→22:11)
--- NOTE | 2021-02-09 12:45 | CASEMGMT ---
RN EVE CONDUIT BENDER CM to room to meet with patient for initial transition planning/care coordination assessment. JOAQUIN PRADO introduced self and role at [facility]. Pt voices understanding and consents to assessment at this time. Pt sitting up in bed in no distress at this time. Pt is A/O at this time and answers all questions appropriately. Care providers, pharmacy, and demographics verified/updated at this time. PCP: No PCP. Pt made aware he will need to get established w/PCP for f/u w/COVID and PE's as soon as possible and discussed importance of same. Pt voices understanding. States annual income is around $30-32,000/yr. Pt provided w/[facility] info and list of local PCP's. Pt voices appreciation. Specialists: none Preferred [facility]acy: [facility] Insurance: [facility] Prescription Benefit: Pt thinks he has Rx coverage, but he is not sure. Pt made aware he will be d/c'ing home on an anti-coag and that 30-day savings card will be provided. Pt made aware, if refills are not affordable, to discuss this w/his PCP, once he is established. Pt also provided w/[facility] information. Living Will/HPOA: States does not have LW or HCPOA . Interested in more information on HPOA. Provided information on advanced directives and given Social Service rac card with number to call if chooses in the future to utilize [facility] social work for advanced directive completion once he is out of COVID isolation. LNOK: grandmotherMonique. Living Arrangements: Lives alone in an apt w/3 steps to enter. Independent and works full-time. Transportation: Pt states drives self and states no transportation concerns at this time. DME: Denies using any DME and denies needs. Pt made aware he may qualify for Home O2 @ d/c. Pt provided w/list of local DME companies and aware [employer] is affiliate of [facility]. Pt chooses [employer]. HHC/SNF: No hx of either. No needs identified. Pt wishes to return home and states has no concerns with going home at time of discharge. CM to follow for home oxygen needs and any further discharge planning/needs. Pt voices no further concerns/needs at this time. Advised pt to ask for CM if any further questions/concerns/needs arise. Voices understanding. PLAN: Home w/discharge plans in place. Follow for any home oxygen needs @ discharge. Follow for anti-coag @ discharge and provide savings card/instructions on use. Sirisha DÍAZN RN CM
[2021-02-09] MEDS: 0.9% Saline Lock 10 ML Syringe IV (22:10)
[2021-02-10 01:10] VITALS: BP 145/83; PULSE 92; RESP 16; TEMP 36.9; O2SAT 95
[2021-02-10 03:23] VITALS: PULSE 78
[2021-02-10 05:43] VITALS: BP 138/73; PULSE 92; RESP 16; TEMP 36.8; O2SAT 93
[2021-02-10 07:00] VITALS: PULSE 75
--- NOTE | 2021-02-10 07:40 | PN.HOSP_ITS ---
Subjective Subjective Patient seen had a relatively uneventful night. Currently not requiring any oxygen Objective Data Objective Data Vital Signs: Vital Signs Temp Pulse Resp BP Pulse Ox 98.3 F 92 16 138/73 H 93 02/10/21 05:43 02/10/21 05:43 02/10/21 05:43 02/10/21 05:43 02/10/21 05:43 Oxygen Flow Rate (L/min) 2 Oxygen Delivery Method Room Air Weight: 101.3 kg Body Mass Index (BMI) 30.0 Intake & Output: Intake and Output for Last 24 Hours 02/08/21 02/09/21 02/10/21 23:59 23:59 23:59 Intake Total 400 / 400 390 / 390 250 / 250 Balance 400 / 400 390 / 390 250 / 250 Lab / Micro Data Result Diagrams: 02/10/21 09:00 02/10/21 09:00 Micro: Microbiology 02/08/21 20:11 Mucosa - Nasopharyngeal Respiratory Panel (PCR) - Final 02/08/21 21:17 Urine, Clean Catch Legionella Antigen - Final 02/08/21 21:17 Urine, Clean Catch Streptococcus pneumoniae Antigen (M - Final Physical Exam Narrative GENERAL: cooperative HEENT: Atraumatic; EYES; Anicteric, Normal Conjunctiva NECK; supple, normal thyroid, RESPIRATORY: Diminished to auscultation CARDIOVASCULAR: Regular S1 S2, GI: soft, normoactive bowel sounds, : No Renal angle tenderness; EXTREMITIES: No edema, no clubbing, MUSCULOSKELETAL: no muscle waisting NEURO: Awake; no lateralizing signs. SKIN: No Rash PSYCH; Flat affect Assessment & Plan Assessment/Plan (1) COVID-19: (2) Hypoxemia: (3) Pulmonary emboli: QUALIFIERS: Acute cor pulmonale presence: unspecified Chronicity: acute Pulmonary embolism type: unspecified Qualified Code(s): I26.99 - Other pulmonary embolism without acute cor pulmonale PLAN: Patient is a 21-year-old unvaccinated male diagnosed with COVID-19 8 days prior to his admission who was sent from his primary care physician's office with hypoxia. Patient was apparently found to be saturating 87% on room air with exertion. 1. Acute hypoxic respiratory failure ?Secondary to SARS-CoV-2 pneumonia as well as pulmonary embolism -02/10/2021; Patient seen had a relatively uneventful night. Currently not requi ring any oxygen. Patient will be assessed for home oxygen with plans for possible discharge 2. SARS-CoV-2 pneumonia ?Admitted to a monitored bed managed with Decadron remdesivir as well as supplemental oxygen 3. Covid induced hypercoagulable state with resultant massive pulmonary embolism ?CT of the chest obtained demonstrated Extensive pulmonary embolus with emboli demonstrated and all lobar arteries. Segmental and subsegmental emboli are also present.. Patient started on therapeutic Lovenox 4. DVT prophylaxis ?Patient presented with pulmonary embolism no additional necessary in view of above 5. Obesity with BMI of 30.1 ?Weight loss advised Charges/Coding Visit Charges Inpatient E&M: 79738 Subs Hosp L2
[2021-02-10 07:42] VITALS: O2SAT 96
[2021-02-10 09:12] LABS: Hematocrit 47.2 % (40-54); Hemoglobin 15.7 g/dL (13.0-16.5); Mean Corp Hgb Conc 33.3 g/dL (32-36); Mean Corpuscular Volume 90.1 fL (80-94); Mean Platelet Vol. 8.6 fl (6.2-12.0); Platelet Count 577 K/mm3 (150-450); RBC Distribution Width CV 11.9 % (11.6-14.6); Red Blood Count 5.24 M/mm3 (4.6-6.2); White Blood Count 13.1 K/mm3 (4.4-11.0)
[2021-02-10 09:28] LABS: ALB/GLOB Ratio 0.5 RATIO (0.9-2.4); AST(SGOT) 22 U/L (15-37); Alanine Aminotransfer ALT/SGPT 32 U/L (16-61); Albumin, Serum 2.9 g/dL (3.2-5.0); Alkaline Phosphatase 66 U/L (45-117); Anion Gap 8 (5-15); BUN 10 mg/dL (7-18); BUN/Creat Ratio 12.2 RATIO (10-20); Calcium,Total 9.3 mg/dL (8.5-10.1); Chloride 105 mmol/L (98-107); Creatinine, Serum 0.82 mg/dL (0.70-1.30); EST Glomerular Filtration Rate 125 mL/min (>60); Est Glom Filt Rate - Afr Amer 151 mL/min (>60); Estimated Creatinine Clearance 155.09 ml/min; Globulin 5.5 g/dL (2.2-4.2); Glucose 93 mg/dL (74-106); Potassium 3.5 mmol/L (3.5-5.1); Protein, Total 8.4 g/dL (6.4-8.2); Sodium Level 139 mmol/L (136-145)
[2021-02-10] MEDS: dexAMETHasone 4 MG/ML Vial 6 MG IV (10:06)
[2021-02-10] MEDS: Famotidine 20 MG Tablet PO (10:06)
[2021-02-10] MEDS: Enoxaparin 120 MG/0.8 ML Syringe 105 MG SC (10:08)
[2021-02-10] MEDS: levoFLOXacin IV 750 MG/150 ML BAG 100 MG IV (10:16)
--- NOTE | 2021-02-10 10:42 | CASEMGMT ---
Addendum entered by Alicia Jacobo 02/10/21 13:26: Call to [facility] and they state they do not have any Eliquis in stock until 02/13. Call to [facility] retail pharmacy and they are able to transfer the script so that they can fill the order for pt today. Pt is agreeable and also states no preference for PCP. Dr. Bender would like this RN CM to make appt for pt with a PCP prior to discharge d/t the extensive bilat PE's. Per [facility] [facility] website, Dr. Roblero/[place] are in-network. Call to Dr. Mead/Annika's office and they are able to see pt on 02/21/21 at 1330. Pt updated and appt placed on d/c instructions. Pt provided Eliquis 30 day free trial card by [facility] retail pharmacy and then $10 co-pay card also by [facility]. Pt voices no further questions/concerns/needs. Nikkie NUÑEZ CM Original Note: Per [facility], pt has been on room air and home oxygen testing completed last pm and pt does not qualify for home oxygen. CM to follow for Eliquis co-pay/coverage. Nikkie NUÑEZ CM
[2021-02-10 11:40] VITALS: BP 120/72; PULSE 104; RESP 16; TEMP 36.1; O2SAT 94
--- NOTE | 2021-02-10 11:53 | PCM.DC.SUM ---
Providers Date of Admission: 02/08/21 Primary Care Physician: No Primary Care Phys Reason For Visit: COVID PNEUMONA, HYPOXIA, PL PE Diagnosis Discharge Diagnosis (1) COVID-19: Status: Acute Code(s): U07.1 - COVID-19 (2) Hypoxemia: Status: Acute Code(s): R09.02 - Hypoxemia (3) Pulmonary emboli: Status: Acute Code(s): I26.99 - Other pulmonary embolism without acute cor pulmonale Qualifiers: Acute cor pulmonale presence: unspecified Chronicity: acute Pulmonary embolism type: unspecified Qualified Code(s): I26.99 - Other pulmonary embolism without acute cor pulmonale Medications at Discharge Home Medications apixaban [Eliquis] 5 mg PO BID #100 tab 02/10/21 Hospital Course Summary of Care Provided Minutes Spent on Discharge: 35 Hospital Course: Patient is a 21-year-old unvaccinated male diagnosed with COVID-19 8 days prior to his admission who was sent from his primary care physician's office with hypoxia. Patient was apparently found to be saturating 87% on room air with exertion. 1. Acute hypoxic respiratory failure ?Secondary to SARS-CoV-2 pneumonia as well as pulmonary embolism -02/10/2021; Patient seen had a relatively uneventful night. Currently not requiring any oxygen. Patient will be assessed for home oxygen with plans for possible discharge -Patient was assessed for home oxygen he did not qualify 2. SARS-CoV-2 pneumonia ?Admitted to a monitored bed managed with Decadron remdesivir as well as supplemental oxygen 3. Covid induced hypercoagulable state with resultant massive pulmonary embolism ?CT of the chest obtained demonstrated Extensive pulmonary embolus with emboli demonstrated and all lobar arteries. Segmental and subsegmental emboli are also present.. Patient started on therapeutic Lovenox -Was discharged home on Eliquis 4. DVT prophylaxis ?Patient presented with pulmonary embolism no additional necessary in view of above 5. Obesity with BMI of 30.1 ?Weight loss advised Physical Exam Narrative GENERAL: cooperative HEENT: Atraumatic; EYES; Anicteric, Normal Conjunctiva NECK; supple, normal thyroid, RESPIRATORY: Diminished to auscultation CARDIOVASCULAR: Regular S1 S2, GI: soft, normoactive bowel sounds, : No Renal angle tenderness; EXTREMITIES: No edema, no clubbing, MUSCULOSKELETAL: no muscle waisting NEURO: Awake; no lateralizing signs. SKIN: No Rash PSYCH; Flat affect Weight / BMI Weight Weight: 101.3 kg Body Mass Index (BMI) 30.0 ABG / Lab / Microbiology Data Result Diagrams: 02/10/21 09:00 02/10/21 09:00 Laboratory: Laboratory Results - last 24 hr 02/10/21 09:00: WBC 13.1 H, RBC 5.24, Hgb 15.7, Hct 47.2, MCV 90.1, MCH 30.0, MCHC 33.3, RDW Std Deviation 39.0, RDW Coeff of John 11.9, Plt Count 577 H, MPV 8.6 02/10/21 09:00: Sodium 139, Potassium 3.5, Chloride 105, Carbon Dioxide 26.0, Anion Gap 8, BUN 10, Creatinine 0.82, Estim Creat Clear Calc 155.09, Est GFR (MDRD) Af Amer 151, Est GFR (MDRD) Non-Af 125, BUN/Creatinine Ratio 12.2, Glucose 93, Calcium 9.3, Total Bilirubin 0.70, AST 22, ALT 32, Alkaline Phosphatase 66, Total Protein 8.4 H, Albumin 2.9 L, Globulin 5.5 H, Albumin/Globulin Ratio 0.5 L Microbiology: Microbiology 02/08/21 20:11 Mucosa - Nasopharyngeal Respiratory Panel (PCR) - Final 02/08/21 21:17 Urine, Clean Catch Legionella Antigen - Final 02/08/21 21:17 Urine, Clean Catch Streptococcus pneumoniae Antigen (M - Final Meaningful Use Info Meaningful Use Diagnoses (Choose all that apply): None applicable Discharge Plan Admission Admit Date/Time: 02/08/21 19:18 Attending Provider: Anthony Bender Primary Care Provider: Care Physician,No Primary Instructions Patient Instructions: DVT/PE Discharge instruction sheet Additional Instructions / Restrictions: Patient Problems: Altered Health Status related to Hospitalization Patient Goals: *Optimal Level of Health *Keep Appointments *Medication Compliance *Remain Safe Discharge Orders/Prescriptions Prescriptions: New Eliquis 5 mg tablet 5 mg PO BID Qty: 100 RF: 0 Referrals / Follow Up: Care Physician,No Primary [Primary Care Provider] - In 1 Week (Patient was given a list of primary care physician to select) Disposition Disposition (needs filled in before D/C Order can be placed): Home, Self Care Charges/Coding Visit Charges Inpatient E&M: 52502 Disch Hosp
--- NOTE | 2021-02-10 12:35 | PHA.DC.MC ---
Pharmacy Service has performed discharge medication reconciliation and counseling for this patient. Due to patient being in COVID precautions, counseling was performed over the telephone. All questions answered via telephone. Also notified patient that medication is being transferred to [facility] retail pharmacy due to unavailability of Eliquis at [facility] [place] The patient was counseled on the following discharge medications and changes in medications for homegoing were reviewed. 1. Eliquis The Reason for Use, instructions for use, and potential side effects were reviewed for all new medications. The patient's questions regarding all of their medications were answered. The patient was able to verbally demonstrate an understanding of their discharge medications. Home Medications apixaban [Eliquis] 5 mg PO BID #100 tab 02/10/21 The patient's discharge medication list was reviewed for discrepancies and discrepancies were resolved.
--- NOTE | 2021-02-13 15:09 | CASEMGMT ---
JOAQUIN PRADO COVID F/U Phone Call LACE: 5 Strata: 1 Discharge date: 02/10/21 Call date: 02/13/21 Call time: [id number] Admission dx: COVID pna, hypoxia, PE Pt states has been doing 'alright' since discharge. Pt states his oxygen level has been good. Pt does inquire about Eliquis dosing and states has been only taking 1 tab twice daily and pt was supposed to be taking 2 tabs twice daily per script. Pt updated and per Vita, pharmacist, pt advised to take 2 tabs twice daily starting now for the next seven days, voices understanding then will go to 1 tab twice daily per script. Pt voices no further questions/concerns/needs. [place] JOAQUIN PRADO
== END 2021-02-10 15:30 | disposition home or self-care (01) | DRG 177 ==
LOC: ED 18:42 → PCU 19:37
PROVIDERS: Family Medicine; Admitting Provider Internal Medicine; Emergency Provider Emergency Medicine; Visit Provider Internal Medicine
DX: U07.1 COVID-19 (principal); I26.99 Other pulmonary embolism without acute cor pulmonale; J96.01 Acute respiratory failure with hypoxia; J12.82 Pneumonia due to coronavirus disease 2019; D68.59 Other primary thrombophilia; Z28.3 Underimmunization status; E66.9 Obesity, unspecified; Z68.31 Body mass index [BMI] 31.0-31.9, adult
CPT/HCPCS: 36415; 71045; 71275; 80048; 80053; 80076; 82728; 83615; 83880; 84145; 84484; 85025; 85027; 85379; 86140; 87040; 87449; 87633; 99251; 99284; 99406; J7050; Q9967; A4216; G0463

== ENCOUNTER 2021-08-01 10:04 | Outpatient (CLI) | payer OTHER, SELFPAY ==
[2021-08-01 12:05] LABS: Absolute Lymphocyte Count 3.25 X10^3/uL (0.83-4.51); Absolute Neutrophil Count 3.1 X10^3/uL (2.0-7.7); Basophil# 0.05 X10^3/uL; Basophil% 0.7 % (0-1); Eosinophil# 0.19 X10^3/uL; Eosinophils% 2.6 % (0-5); Hematocrit 46.3 % (40-54); Hemoglobin 15.9 g/dL (13.0-16.5); Lymphocyte # 3.25 X10^3/ul (0.83-4.51); Lymphocyte % 44.8 % (19-41); Mean Corp Hgb Conc 34.3 g/dL (32-36); Mean Corpuscular Hgb 31.5 pg (27.0-32.0); Mean Corpuscular Volume 91.7 fL (80-94); Mean Platelet Vol. 9.6 fl (6.2-12.0); Monocyte# 0.66 X10^3/uL; Monocyte% 9.1 % (0-10); NRBC Flagged by Analyzer 0 % (0-5); Neutrophil # 3.08 X10^3/uL (2.7-7.7); Neutrophil % 42.5 % (47-70); Platelet Count 319 K/mm3 (150-450); RBC Distribution Width CV 12.4 % (11.6-14.6); RBC Distribution Width SD 41.2 fl (35.1-43.9); Red Blood Count 5.05 M/mm3 (4.6-6.2); White Blood Count 7.3 K/mm3 (4.4-11.0)
[2021-08-01 12:39] LABS: ALB/GLOB Ratio 1.1 RATIO (0.9-2.4); AST(SGOT) 18 U/L (15-37); Alanine Aminotransfer ALT/SGPT 37 U/L (16-61); Alkaline Phosphatase 64 U/L (45-117); Anion Gap 2 (5-15); BUN 12 mg/dL (7-18); BUN/Creat Ratio 11.9 RATIO (10-20); Calcium,Total 9.3 mg/dL (8.5-10.1); Chloride 108 mmol/L (98-107); Cholesterol 150 mg/dL (200); Creatinine, Serum 1.01 mg/dL (0.70-1.30); EST Glomerular Filtration Rate 98 mL/min (>60); Est Glom Filt Rate - Afr Amer 118 mL/min (>60); Globulin 3.6 g/dL (2.2-4.2); Glucose 99 mg/dL (74-106); High Density Lipoprotein 50 mg/dL; Potassium 3.8 mmol/L (3.5-5.1); Protein, Total 7.6 g/dL (6.4-8.2); Sodium Level 140 mmol/L (136-145); Triglycerides 103 mg/dL; Very Low Density Lipoprotein 21 mg/dL (5-40)
[2021-08-01 14:44] LABS: Chlamydia Trachomatis by PCR Negative (Negative); Neisserai gonorrhoeae by PCR Negative (Negative); Probe Check PASS; Sample Adequacy Control PASS; Specimen Processing Control PASS
== END 2021-08-01 23:59 | disposition home or self-care (01) ==
LOC: BIMLAB 10:05
PROVIDERS: PCP Nurse Practitioner Family; Referring Provider Nurse Practitioner Family; Visit Provider Nurse Practitioner Family
DX: Z00.00 Encounter for general adult medical examination without abnormal findings (principal)
CPT/HCPCS: 36415; 80053; 80061; 84443; 85025; 87491; 87591